=== PATIENT | male | born 1950 | race Caucasian/White ===

== ENCOUNTER 2019-04-22 14:27 | Emergency (ER) | payer MEDICARE, SELFPAY ==
[2019-04-22 14:30] VITALS: BP 185/93; PULSE 55; RESP 18; TEMP 36.3; O2SAT 96; BMI 24.0
[2019-04-22 14:43] LABS: Bacteria Urine None Seen; RBC Urine None Seen (0-5/HPF); WBC Urine None Seen (0-5/HPF)
--- NOTE | 2019-04-22 14:44 | DI.RAD.S_ITS ---
PROCEDURE: XR RIBS RT MIN 3V W CXR 1V INDICATIONS: GLF onto back, struck R ribs, having R flank and back pain TECHNIQUE: 3 views of the right ribs were acquired, along with a single view chest. COMPARISON: None. FINDINGS: Surgical changes and devices: None. Bones and chest wall: A marker is placed upon the area of clinical concern. Within this region, no displaced rib fracture or other significant rib abnormality can be seen. No rib fractures are seen elsewhere. No suspicious bony lesions. Age-appropriate bony degenerative changes are seen. Overlying soft tissues appear unremarkable. Lungs and pleura: No pleural effusions or pneumothorax. Lungs appear clear. Mediastinum: Mediastinal contours appear normal. Heart size is normal. IMPRESSION: No displaced fractures can be seen. Dictated by: Pavel Rodriguez M.D. on 04/22/2019 at 15:10 Approved by: Pavel Rodriguez M.D. on 04/22/2019 at 15:11
[2019-04-22 14:45] LABS: Appearance Urine UA CLEAR; Bilirubin Urine UA NEGATIVE (NEGATIVE); Color Urine UA YELLOW; Glucose Urine UA NEGATIVE (Negative); Ketones Urine UA NEGATIVE (NEGATIVE); Leukocyte Esterase Urine UA NEGATIVE (NEGATIVE); Nitrite Urine UA NEGATIVE (Negative); Occult Blood Urine UA NEGATIVE (Negative); Protein Urine UA TRACE (Negative)
[2019-04-22 14:51] LABS: Culture Indicated Urine Cult Not Indicated; Hyaline Casts Urine 0-1/LPF
[2019-04-22] MEDS: LIDOCAINE PATCH 1 EACH ADH..PATCH TOP (17:37)
[2019-04-22] MEDS: KETOROLAC 60 MG/2 ML VIAL 30 MG IM (17:37)
--- NOTE | 2019-04-22 18:34 | ED.BACK ---
HPI - Back Pain/Injury <RAPHAEL Nolen - Last Filed: 04/22/19 18:40> General Chief Complaint: Back Pain/Injury Stated Complaint: right lower back injury x5 days Time Seen by Provider: 04/22/19 16:39 Source: patient and family Mode of arrival: ambulatory Limitations: no limitations History of Present Illness HPI Narrative: The patient is a 68-year-old male nonsmoker presents with his for chief complaint of right flank and rib pain. He states he slipped on tile floor at on Sunday night. He states he landed with his right ribs and flank on the metal part of a laundry basket. He states he is still having pain. He denies any dizziness, lightheadedness, abdominal pain, difficulty breathing, but states it is difficult to take a deep breath. He denies any hematuria. He repeatedly denies any hematuria or blood in his urine. He is concerned as he is still having pain. He took a single dose of ibuprofen this morning. Related Data Previous Rx's Medication Instructions Recorded ketorolac 10 mg PO TID PRN #14 tab 04/22/19 lidocaine 1 patch TOP DAILY #15 each 04/22/19 Allergies Allergy/AdvReac Type Severity Reaction Status Date / Time No Known Drug Allergies Allergy Verified 04/22/19 16:36 Review of Systems <RAPAHEL Nolen - Last Filed: 04/22/19 18:40> Review of Systems Narrative: GENERAL: Denies chills, fatigue, malaise, fever, sweats. HEENT: Denies sinus pain, ear pain, sore throat, difficulty swallowing, dizziness. RESPIRATORY: Denies dyspnea, cough, wheezing, hemoptysis, sputum. CARDIOVASCULAR: Denies chest pain, palpitations, orthopnea, edema, GASTROINTESTINAL: See HPI : Denies dysuria, frequency, incontinence, hematuria, urinary retention. MUSCULOSKELETAL: See HPI SKIN: Denies rash, skin lesions, or other NEUROLOGIC: Denies weakness, headache, numbness, change in speech, confusion, seizures, incoordination. PSYCHIATRIC: No concerning psychosocial issues. 12 point review of systems is negative except for those stated above PFSH <RAPHAEL Nolen - Last Filed: 04/22/19 18:40> Social History Smoking Status: Never smoker Social History Smoking Status: Never smoker Exam <RAPHAEL Nolen - Last Filed: 04/22/19 18:40> Narrative Exam Narrative: GENERAL: This is a well-nourished, well-developed patient, in no acute distress HEAD: Atraumatic. Normocephalic. No temporal or scalp tenderness. EYES: Pupils equal round and reactive. Extraocular motions intact. No scleral icterus. No injection or drainage. ENT: Nose without bleeding, purulent drainage or septal hematoma. Throat without erythema, tonsillar hypertrophy or exudate. Uvula midline. Airway patent. NECK: Trachea midline. No JVD or lymphadenopathy. Supple, nontender, no meningeal signs. CARDIOVASCULAR: Regular rate and rhythm without murmurs, gallops, or rubs. RESPIRATORY: Clear to auscultation. Breath sounds equal bilaterally. No wheezes, rales, or rhonchi. No cough. No increased respiratory effort. No stridor. No accessory muscle use. Patient has pain at lateral chest wall compression. GASTROINTESTINAL: Abdomen soft, non-tender, nondistended. No hepato-splenomegaly, or palpable masses. No guarding. EXTREMITIES: No clubbing, cyanosis, or edema. No joint tenderness, effusion, or edema noted. BACK: Nontender without deformity or crepitance. No flank tenderness. No pain to CT or L-spine palpation NEURO: AOx3. Stable gait. Strength is equal upper and lower extremities bilaterally. SKIN: No rash or erythema or ecchymosis laceration noted on right flank Initial Vital Signs Initial Vital Signs: Vital Signs Temperature 97.4 F L 04/22/19 14:30 Pulse Rate 55 L 04/22/19 14:30 Respiratory Rate 18 04/22/19 14:30 Blood Pressure 185/93 H 04/22/19 14:30 Pulse Oximetry 96 04/22/19 14:30 <Adia Montoya DO - Last Filed: 04/22/19 19:18> Initial Vital Signs Initial Vital Signs: Vital Signs Temperature 97.4 F L 04/22/19 14:30 Pulse Rate 55 L 04/22/19 14:30 Respiratory Rate 18 04/22/19 14:30 Blood Pressure 185/93 H 04/22/19 14:30 Pulse Oximetry 96 04/22/19 14:30 Scores <RAPHAEL Noeln - Last Filed: 04/22/19 18:40> GCS [place] coma scale eye opening: Spontaneous [place] coma scale verbal response: Orientated [place] coma scale motor response: Obey commands [place] coma scale total score: 15 Course <RAPHAEL Nolen - Last Filed: 04/22/19 18:40> Orders Ordered: ED Orders 04/22/19 14:36 Urinalysis and Microscopic Stat 04/22/19 14:44 XR ribs RT min 3V w CXR1V Stat Discontinued Medications Ketorolac Tromethamine (Toradol) 30 mg IM NOW ONE Stop: 04/22/19 17:07 Last Admin: 04/22/19 17:37 Dose: 30 mg Documented by: JOSIASARRINGTO Lidocaine (Lidoderm) 1 each TOP NOW ONE Stop: 04/22/19 17:07 Last Admin: 04/22/19 17:37 Dose: 1 each [facility] Vital Signs Vital signs: Vital Signs - 8 hr 04/22/19 14:30 Temperature 97.4 F L Pulse Rate 55 L Respiratory Rate 18 Blood Pressure 185/93 H Pulse Oximetry 96 <Adia Montoya DO - Last Filed: 04/22/19 19:18> Orders Ordered: ED Orders 04/22/19 14:36 Urinalysis and Microscopic Stat 04/22/19 14:44 XR ribs RT min 3V w CXR1V Stat Discontinued Medications Ketorolac Tromethamine (Toradol) 30 mg IM NOW ONE Stop: 04/22/19 17:07 Last Admin: 04/22/19 17:37 Dose: 30 mg Documented by: JOSIASARRINGTO Lidocaine (Lidoderm) 1 each TOP NOW ONE Stop: 04/22/19 17:07 Last Admin: 04/22/19 17:37 Dose: 1 each Documented by: [facility] Vital Signs Vital signs: Vital Signs - 8 hr 04/22/19 14:30 Temperature 97.4 F L Pulse Rate 55 L Respiratory Rate 18 Blood Pressure 185/93 H Pulse Oximetry 96 MDM - Back Pain/Injury <RAPHAEL Nolen - Last Filed: 04/22/19 18:40> Lab Data Labs: Lab Results 04/22/19 Range/Units 14:36 Urine Color Yellow Urine Appearance Clear Urine pH 7.0 (4.5-8.0) Ur Specific [place] 1.010 (1.000-1.035) Urine Protein Trace H (Negative) Urine Glucose (UA) Negative (Negative) g/dL Urine Ketones Negative (NEGATIVE) Urine Occult Blood Negative (Negative) Urine Nitrate Negative (Negative) Urine Bilirubin Negative (NEGATIVE) Urine Urobilinogen 1.0 (0.2) E.U./dL Ur Leukocyte Esterase Negative (NEGATIVE) Urine RBC None seen (0-5/HPF) Urine WBC None seen (0-5/HPF) Urine Bacteria None seen (None) Hyaline Casts 0-1/lpf (None) Ur Culture Indicated? Cult not indicated Imaging Data Rib x-ray: Radiologist's impression: Jaxon Bailey 68 [address] [place] [id number] XRay Report Signed Patient: Jaxon BaileyMR#: [id number] : 9Acct:[id number] Age/Sex: 68 / MDate of Service: 04/22/19 Loc: ED Accession Number: [id number] Procedure: XR ribs RT min 3V w CXR1V Ordering Provider: Adia Montoya D.O. PROCEDURE: XR RIBS RT MIN 3V W CXR 1V INDICATIONS: GLF onto back, struck R ribs, having R flank and back pain TECHNIQUE: 3 views of the right ribs were acquired, along with a single view chest. COMPARISON: None. FINDINGS: Surgical changes and devices: None. Bones and chest wall: A marker is placed upon the area of clinical concern. Within this region, no displaced rib fracture or other significant rib abnormality can be seen. No rib fractures are seen elsewhere. No suspicious bony lesions. Age-appropriate bony degenerative changes are seen. Overlying soft tissues appear unremarkable. Lungs and pleura: No pleural effusions or pneumothorax. Lungs appear clear. Mediastinum: Mediastinal contours appear normal. Heart size is normal. IMPRESSION: No displaced fractures can be seen. Dictated by: Pavel Rodriguez M.D. on 04/22/2019 at 15:10 Approved by: Pavel Rodriguez M.D. on 04/22/2019 at 15:11 [facility] Narrative Medical decision making narrative: The patient is a 68-year-old male who presents after slipping and falling several days ago landing with his flank on a laundry basket. He has no obvious fracture on rib x-ray. He does not have any hematuria on urine dip. He denies any loss of consciousness, neck or back pain. I discussed at length the possibility of a rib contusion, patient declined any narcotic or ?addictive medications. He was given lidocaine patch as well as Toradol. Given a prescription of the same. Discussed not taking Toradol with any Aleve or ibuprofen or other NSAIDs. Discussed at length follow up with PCP, coming back to the emergency department for any acute concerns. Patient has no questions or concerns upon discharge. <Adia Montoya, - Last Filed: 04/22/19 19:18> Lab Data Labs: Lab Results 04/22/19 Range/Units 14:36 Urine Color Yellow Urine Appearance Clear Urine pH 7.0 (4.5-8.0) Ur Specific [place] 1.010 (1.000-1.035) Urine Protein Trace H (Negative) Urine Glucose (UA) Negative (Negative) g/dL Urine Ketones Negative (NEGATIVE) Urine Occult Blood Negative (Negative) Urine Nitrate Negative (Negative) Urine Bilirubin Negative (NEGATIVE) Urine Urobilinogen 1.0 (0.2) E.U./dL Ur Leukocyte Esterase Negative (NEGATIVE) Urine RBC None seen (0-5/HPF) Urine WBC None seen (0-5/HPF) Urine Bacteria None seen (None) Hyaline Casts 0-1/lpf (None) Ur Culture Indicated? Cult not indicated Discharge Plan Departure Patient Disposition: Home Clinical Impression: Chest wall contusion Qualifiers: Encounter type: initial encounter Laterality: right Qualified Code(s): S20.211A - Contusion of right front wall of thorax, initial encounter Discharge Date/Time: 04/22/19 18:41 Instructions: How to Use an Incentive Spirometer, DI for Rib Contusion Activity Restrictions/Additional Instructions: Please follow up with primary care provider. I have given her prescription of ketorolac. Do not combine this with Aleve or any other NSAIDs such as ibuprofen I have also given her prescription of lidocaine Patches. Please use the incentive spirometer provided to help prevent development of pneumonia Please come back to emergency department for any acute issues Prescriptions: New ketorolac 10 mg tablet 10 mg PO TID PRN (Reason: pain) Qty: 14 RF: 0 lidocaine 5 % adhesive patch,medicated 1 patch TOP DAILY Qty: 15 RF: 0
== END 2019-04-22 18:41 | disposition home or self-care (01) ==
PROVIDERS: Emergency Medicine; Emergency Provider Nurse Practitioner Family
DX: S20.211A Contusion of right front wall of thorax, initial encounter (principal); W01.0XXA Fall on same level from slipping, tripping and stumbling without subsequent striking against object, initial encounter
CPT/HCPCS: 71101; 81001; 96372; 99282; 99284; J1885

== ENCOUNTER → 2019-07-08 11:18 | Outpatient (CLI) | payer MEDICARE, SELFPAY ==
[2019-07-08 12:34] LABS: Alanine Aminotransferase 77 IU/L (<50); Albumin 4.2 g/dL (3.5-5.0); Albumin Globulin Ratio 1.2 (1.0-2.8); Alkaline Phosphatase 68 U/L (38-126); Aspartate Aminotransferase 88 IU/L (17-59); Bilirubin Total 1.2 mg/dL (0.2-1.3); Blood Urea Nitrogen 13 mg/dL (9-20); Calcium 9.4 mg/dL (8.4-10.2); Carbon Dioxide 28 mmol/L (22-32); Chloride 104 mmol/L (98-107); Cholesterol 205 mg/dL (140-199); Estimated Glomerular Filt Rate > 60.0 mL/min (>60); Globulin 3.4 g/dL (1.7-4.1); Glucose 105 mg/dL (80-110); HDL Cholesterol 60 mg/dL (40-60); HEMOLYSIS < 15 (0-50); LDL Cholesterol Calculated 130 mg/dL (<100); Potassium 4.1 mmol/L (3.4-5.1); Sodium 142 mmol/L (137-145); Total Protein 7.6 g/dL (6.3-8.2); Triglycerides 77 mg/dL (35-150)
[2019-07-08 13:03] LABS: Prostate Specific Antigen Scrn 2.51 ng/mL (0.1-4.0)
[2019-07-08 18:07] LABS: Hep C Virus Ab w/Reflex Quant REACTIVE s/c (NEGATIVE)
== END ==
PROVIDERS: PCP Internal Medicine; Visit Provider Internal Medicine
DX: Z12.5 Encounter for screening for malignant neoplasm of prostate (principal); Z11.59 Encounter for screening for other viral diseases; I10 Essential (primary) hypertension; E78.5 Hyperlipidemia, unspecified
CPT/HCPCS: 36415; 80053; 80061; 86803; 87522; G0103

== ENCOUNTER → 2019-07-15 14:15 | Outpatient (CLI) | payer MEDICARE, SELFPAY ==
[2019-07-15 15:05] LABS: Add Manual Diff / Slide Review NO; Basophils Absolute Auto 100 /uL (0-100); Eosinophils Absolute Auto 300 /uL (0-450); Eosinophils Percent Auto 5.9 % (2-4); Hematocrit 41.3 % (41-53); Hemoglobin 14.8 g/dL (13.5-17.5); Lymphocytes Absolute Auto 1700 /uL (1100-4500); Lymphocytes Percent Auto 29.5 % (25-40); Mean Corpuscular HGB Conc 35.8 % (30-36); Mean Corpuscular Volume 100.5 fL (80-100); Monocytes Absolute Auto 700 /uL (0-900); Monocytes Percent Auto 12.2 % (3-14); Neutrophils Absolute Auto 2900 /uL (1500-7000); Neutrophils Percent Auto 51.4 % (50-75); Platelet Count 172 X10^3/uL (150-400); Red Blood Cell Count 4.11 X10^6/uL (4.5-5.9); Red Cell Distribution Width 13.6 % (11.6-14.8); White Blood Cell Count 5.6 X10^3/uL (4.5-11.0)
== END ==
PROVIDERS: PCP Internal Medicine; Visit Provider Internal Medicine
DX: K62.5 Hemorrhage of anus and rectum (principal)
CPT/HCPCS: 36415; 85025

== ENCOUNTER → 2021-09-01 08:56 | Outpatient (CLI) | payer OTHER, MEDICARE, SELFPAY ==
[2021-09-01 10:00] LABS: Hematocrit 40.3 % (41-53); Hemoglobin 13.3 g/dL (13.5-17.5); Mean Corpuscular HGB Conc 33.1 % (30-36); Mean Corpuscular Hemoglobin 29.2 PG (26-34); Mean Corpuscular Volume 88.2 fL (80-100); Platelet Count 308 X10^3/uL (150-400); Red Blood Cell Count 4.56 X10^6/uL (4.5-5.9); Red Cell Distribution Width 15.9 % (11.6-14.8); White Blood Cell Count 5.3 X10^3/uL (4.5-11.0)
[2021-09-01 10:05] LABS: INR 1.1 (0.9-1.3); Prothrombin Time 12.3 SECONDS (10.1-12.7)
[2021-09-01 10:08] LABS: PTT Partial Thromboplastin Tim 29 SECONDS (26.4-36.2)
[2021-09-01 10:18] LABS: Alanine Aminotransferase 47 IU/L (<50); Albumin Globulin Ratio 1.3 (1.0-2.8); Alkaline Phosphatase 144 U/L (38-126); Aspartate Aminotransferase 80 IU/L (17-59); BUN Creatinine Ratio 12.2 (6-22); Bilirubin Total 0.7 mg/dL (0.2-1.3); Blood Urea Nitrogen 11 mg/dL (9-20); Carbon Dioxide 28 mmol/L (22-32); Chloride 107 mmol/L (98-107); Estimated Glomerular Filt Rate > 60.0 mL/min (>60); Globulin 3.1 g/dL (1.7-4.1); Glucose 107 mg/dL (80-110); HEMOLYSIS < 15 (0-50); Potassium 3.8 mmol/L (3.4-5.1); Sodium 140 mmol/L (137-145); Total Protein 7.1 g/dL (6.3-8.2)
[2021-09-02 08:12] LABS: Alpha Fetoprotein 3.8 ng/mL (0.0-8.3)
== END ==
PROVIDERS: PCP Internal Medicine; Referring Provider Radiology Vascular & Interventional Radiology; Visit Provider Radiology Vascular & Interventional Radiology
DX: C22.0 Liver cell carcinoma (principal)
CPT/HCPCS: 36415; 80053; 82105; 85027; 85610; 85730

== ENCOUNTER → 2021-09-30 07:11 | Outpatient (CLI) | payer OTHER, MEDICARE, SELFPAY ==
[2021-09-30 09:31] LABS: Hemoglobin A1C% w Est Avg Glu 5.5 % (4.0-6.0)
[2021-09-30 10:07] LABS: Cholesterol 253 mg/dL (140-199); HDL Cholesterol 40 mg/dL (40-60); LDL Cholesterol Calculated 200 mg/dL (<100); Triglycerides 66 mg/dL (35-150)
[2021-09-30 10:09] LABS: TSH w/ Reflex to FT4 4.92 uIU/mL (0.47-4.68)
[2021-09-30 10:45] LABS: Free T4, Direct Thyroxine 1.32 ng/dL (0.78-2.19)
[2021-10-03 15:50] LABS: Hep C Virus Ab w/Reflex Quant REACTIVE s/c (NEGATIVE)
== END ==
PROVIDERS: PCP Internal Medicine; Referring Provider Internal Medicine; Visit Provider Internal Medicine
DX: R73.01 Impaired fasting glucose (principal); R76.8 Other specified abnormal immunological findings in serum; E78.2 Mixed hyperlipidemia; R53.1 Weakness
CPT/HCPCS: 36415; 80061; 83036; 84439; 84443; 86803; 87522